=== PATIENT | female | born 1995 | race Hispanic/Latino ===

== ENCOUNTER 2018-02-19 13:19 | Emergency (ER) | payer SELFPAY | END 2018-02-19 14:20 | disposition home or self-care (01) | LOC: EDH 13:19 | DX: N63.0 Unspecified lump in unspecified breast (principal) | CPT/HCPCS: 99281 ==

== ENCOUNTER 2022-04-13 15:58 | Emergency (ER) | payer OTHER ==
[~2022-04-13] VITALS: Ht 152.4 cm; Wt 47.6 kg
[2022-04-13 16:00] VITALS: BP 96/62
[2022-04-13 16:58] LABS: APPEARANCE,URINE CLOUDY (CLEAR); BILIRUBIN,URINE NEGATIVE (NEGATIVE); COLOR,URINE YELLOW (YELLOW); GLUCOSE, URINE (UA) NEGATIVE (NEGATIVE); KETONES,URINE NEGATIVE (NEGATIVE); LEUKOCYTE ESTERASE ,URINE 75 Leu/uL (NEGATIVE); NITRATE,URINE NEGATIVE (NEGATIVE); OCCULT BLOOD,URINE NEGATIVE (NEGATIVE); PROTEIN,URINE 70 mg/dL (NEGATIVE); UROBILINOGEN,URINE 0.2 mg/dL (0.2-1.0)
[2022-04-13] MEDS ORDERED: CEPH500B PO (16:58)
[2022-04-13 17:30] LABS: BACTERIA,URINE MOD /HPF (None Seen); MUCUS,URINE RARE LPF (None Seen); SQUAMOUS EPITHELIAL CELL,UR FEW /HPF (0-2); WBC,URINE 51-100 /HPF (0-1)
== END 2022-04-13 17:20 | disposition home or self-care (01) ==
LOC: EDH 15:58
DX: N39.0 Urinary tract infection, site not specified (principal)
CPT/HCPCS: 81001; 81025; 87077; 87088; 87186